=== PATIENT | male | born 1935 | race Two or more races ===

== ENCOUNTER 2018-04-25 09:14 | Emergency (ER) | payer MEDICARE, OTHER ==
[~2018-04-25] VITALS: Ht 182.9 cm; Wt 99.8 kg
[2018-04-25 09:20] VITALS: BP 167/109
--- NOTE | 2018-04-25 10:03 | NUR ---
Patient discharged to home in stable condition. Written and verbal after care instructions given. Patient verbalizes understanding of instruction.
== END 2018-04-25 10:03 | disposition home or self-care (01) ==
LOC: ER 09:19
DX: B02.9 Zoster without complications (principal); E78.5 Hyperlipidemia, unspecified
CPT/HCPCS: 99283; A4606